=== PATIENT | male | born 1980 | race Caucasian/White ===

== ENCOUNTER 2022-03-05 09:04 | Emergency (ER) | payer OTHER ==
[2022-03-05 09:08] LABS: Glucose,Whole Blood 186 mg/dL (70-110)
[2022-03-05 09:10] VITALS: TEMP 97.7
[2022-03-05] MEDS ORDERED: LABETALOL 5 MG/ML VIAL MDV IVP STA (09:12)
--- NOTE | 2022-03-05 09:16 | ED ---
Neuro HPI - General Chief Complaint: Neuro Symptoms/Deficit Stated Complaint: Stroke Time Seen by Provider: 03/05/22 09:06 Source: patient, EMS Mode of arrival: EMS Limitations: no limitations - History of Present Illness Is the patient presenting with stroke symptoms?: Yes Last Known Well Date: 03/05/22 Last Known Well Time: 08:00 -: minutes(s) Initial Comments: Patient is 41-year-old man presenting with complaint that his speech has changed and he has tingling of his extremities particularly bilateral feet. The patient was in usual state of health until around 8 AM. While he was watching television noticed that his speech was not right. He also started having trouble walking and said that it is feet were tingling. Patient's associate phoned EMS and they brought the patient here. He is denying headache, change in vision or hearing. No symptoms to the upper extremities currently. Location: speech History of same: No Place: home Severity: moderate Improves With: none Worsens With: none On Anticoagulants: No Context: gradual onset Associated Symptoms: other Treatments Prior to Arrival: none - Related Data Allergies/Adverse Reactions: Allergies Allergy/AdvReac Type Severity Reaction Status Date / Time No Known Allergies Allergy Verified 03/05/22 09:16 Review of Systems ROS Statement: Those systems with pertinent positive or pertinent negative responses have been documented in the HPI. ROS Other: All systems not noted in ROS Statement are negative. Constitutional: Denies: fever, chills Eyes: Denies: eye pain, vision change ENT: Denies: hearing loss Respiratory: Denies: cough, dyspnea Cardiovascular: Denies: chest pain, palpitations, orthopnea, edema, syncope Gastrointestinal: Denies: abdominal pain, vomiting, diarrhea Genitourinary: Denies: dysuria, hematuria Musculoskeletal: Denies: back pain Skin: Denies: rash Neurological: Reports: paresthesias (Bilateral feet). Denies: headache, weakness, numbness General Exam Limitations: no limitations General appearance: alert, in no apparent distress Head exam: Present: atraumatic, normocephalic Eye exam: Present: normal appearance, PERRL, EOMI. Absent: scleral icterus, conjunctival injection ENT exam: Present: mucous membranes dry Neck exam: Present: normal inspection, full ROM Respiratory exam: Present: normal lung sounds bilaterally. Absent: respiratory distress, wheezes, rales, rhonchi, stridor Cardiovascular Exam: Present: normal rhythm, tachycardia, normal heart sounds. Absent: systolic murmur, diastolic murmur, rubs, gallop GI/Abdominal exam: Present: soft. Absent: distended, tenderness, guarding, rebound, rigid, mass, hernia Extremities exam: Present: normal inspection, normal capillary refill. Absent: pedal edema, calf tenderness Back exam: Present: normal inspection. Absent: CVA tenderness (R), CVA tenderness (L) Neurological exam: Present: alert Skin exam: Present: warm, dry, intact, normal color. Absent: rash Stroke MDM - Lab Data Result diagrams: 03/05/22 09:12 03/05/22 09:12 Lab Results 03/05/22 03/05/22 03/05/22 Range/Units 09:07 09:12 09:12 WBC 14.3 H (3.8-10.6) k/uL RBC 5.35 (4.30-5.90) m/uL Hgb 17.1 (13.0-17.5) gm/dL Hct 48.9 (39.0-53.0) % MCV 91.5 (80.0-100.0) fL MCH 31.9 (25.0-35.0) pg MCHC 34.9 (31.0-37.0) g/dL RDW 12.8 (11.5-15.5) % Plt Count 342 (150-450) k/uL MPV 8.1 Neutrophils % 53 % Lymphocytes % 34 % Monocytes % 6 % Eosinophils % 3 % Basophils % 1 % Neutrophils # 7.6 (1.3-7.7) k/uL Lymphocytes # 4.9 H (1.0-4.8) k/uL Monocytes # 0.9 (0-1.0) k/uL Eosinophils # 0.4 (0-0.7) k/uL Basophils # 0.1 (0-0.2) k/uL PT 10.2 (9.0-12.0) sec INR 0.9 (<1.2) APTT 20.6 L (22.0-30.0) sec Sodium (137-145) mmol/L Potassium (3.5-5.1) mmol/L Chloride (98-107) mmol/L Carbon Dioxide (22-30) mmol/L Anion Gap mmol/L BUN (9-20) mg/dL Creatinine (0.66-1.25) mg/dL Est GFR (CKD-EPI)AfAm (>60 ml/min/1.73 sqM) Est GFR (CKD-EPI)NonAf (>60 ml/min/1.73 sqM) Glucose (74-99) mg/dL POC Glucose (mg/dL) 186 H (70-110) mg/dL POC Glu Business Management Professor ID Nikia Hu Calcium (8.4-10.2) mg/dL Total Bilirubin (0.2-1.3) mg/dL AST (17-59) U/L ALT (4-49) U/L Alkaline Phosphatase (38-126) U/L Troponin I (0.000-0.034) ng/mL Total Protein (6.3-8.2) g/dL Albumin (3.5-5.0) g/dL 03/05/22 03/05/22 Range/Units 09:12 09:12 WBC (3.8-10.6) k/uL RBC (4.30-5.90) m/uL Hgb (13.0-17.5) gm/dL Hct (39.0-53.0) % MCV (80.0-100.0) fL MCH (25.0-35.0) pg MCHC (31.0-37.0) g/dL RDW (11.5-15.5) % Plt Count (150-450) k/uL MPV Neutrophils % % Lymphocytes % % Monocytes % % Eosinophils % % Basophils % % Neutrophils # (1.3-7.7) k/uL Lymphocytes # (1.0-4.8) k/uL Monocytes # (0-1.0) k/uL Eosinophils # (0-0.7) k/uL Basophils # (0-0.2) k/uL PT (9.0-12.0) sec INR (<1.2) APTT (22.0-30.0) sec Sodium 139 (137-145) mmol/L Potassium 3.5 (3.5-5.1) mmol/L Chloride 100 (98-107) mmol/L Carbon Dioxide 24 (22-30) mmol/L Anion Gap 15 mmol/L BUN 15 (9-20) mg/dL Creatinine 1.31 H (0.66-1.25) mg/dL Est GFR (CKD-EPI)AfAm 78 (>60 ml/min/1.73 sqM) Est GFR (CKD-EPI)NonAf 67 (>60 ml/min/1.73 sqM) Glucose 191 H (74-99) mg/dL POC Glucose (mg/dL) (70-110) mg/dL POC Glu Business Management Professor ID Calcium 8.8 (8.4-10.2) mg/dL Total Bilirubin 1.0 (0.2-1.3) mg/dL AST 29 (17-59) U/L ALT 35 (4-49) U/L Alkaline Phosphatase 137 H (38-126) U/L Troponin I <0.012 (0.000-0.034) ng/mL Total Protein 8.2 (6.3-8.2) g/dL Albumin 4.7 (3.5-5.0) g/dL - Medical Decision Making Patient's 41-year-old man presenting with acute onset dysarthria and bilateral leg symptoms. On arrival found to be markedly hypertensive in addition to the neurologic findings. I patient is sent for CT and CT Angio. I reviewed the computed tomography scan which does show pontine hemorrhage and simultaneously received a call from the radiologist confirming this finding. The patient is given dose of labetalol and Cardene drip was ordered from the pharmacy. When this arrived it was started as well. The case had been discussed twice with Dr. Miles regarding the patient's clinical presentation and then the CT findings. His treatment recommendations are incorporated. Patient will go to [facility] for further stroke team treatment. This was discussed with patient and family and he is agreeable. - EKG Data -: EKG Interpreted by Me EKG shows normal: sinus rhythm, axis (Normal), intervals (Normal), QRS complexes (Normal) Rate: tachycardia (Rate 1:30 bpm) Interpretation: nonspecific ST-T wave changes Past Medical History Past Medical History: No Reported History History of Any Multi-Drug Resistant Organisms: None Reported Past Surgical History: No Surgical Hx Reported Smoking Status: Former smoker Past Alcohol Use History: None Reported Past Drug Use History: None Reported Course Vital Signs 03/05/22 03/05/22 03/05/22 09:06 09:40 09:47 Temperature 97.7 F Pulse Rate 138 H 114 H 120 H Respiratory 18 16 Rate Blood Pressure 216/156 186/140 181/146 O2 Sat by Pulse 98 97 94 L Oximetry 03/05/22 03/05/22 03/05/22 09:54 10:03 10:21 Temperature Pulse Rate 98 92 102 H Respiratory 16 16 18 Rate Blood Pressure 176/133 124/83 151/116 O2 Sat by Pulse 93 L 91 L 92 L Oximetry Critical Care Time Critical Care Time: Yes (40 minutes) Disposition Clinical Impression: Pontine hemorrhage Disposition: OTHER INSTITUTION NOT DEFINED Condition: Critical Is patient prescribed a controlled substance at d/c from ED?: No Referrals: None,Stated [Primary Care Provider] - 1-2 days - Out of Hospital Transfer - Req. Specs Out of Hospital Transfer - Requested Specifics: Neurological ICU
[2022-03-05 09:35] LABS: Basophils # (A) 0.1 k/uL (0-0.2); Basophils % (A) 1 %; Eosinophils # (A) 0.4 k/uL (0-0.7); Eosinophils % (A) 3 %; HCT 48.9 % (39.0-53.0); HGB 17.1 gm/dL (13.0-17.5); Lymphocytes # (A) 4.9 k/uL (1.0-4.8); Lymphocytes % (A) 34 %; MCH 31.9 pg (25.0-35.0); MCHC 34.9 g/dL (31.0-37.0); MCV 91.5 fL (80.0-100.0); Mean Platelet Volume 8.1; Monocytes # (A) 0.9 k/uL (0-1.0); Monocytes % (A) 6 %; Neutrophils # (A) 7.6 k/uL (1.3-7.7); Neutrophils % (A) 53 %; Platelet Count 342 k/uL (150-450); RBC 5.35 m/uL (4.30-5.90); RDW 12.8 % (11.5-15.5); WBC 14.3 k/uL (3.8-10.6)
[2022-03-05] MEDS ORDERED: niCARdipine 20 MG in SODIUM CHLORIDE 0.9% 192 ML IV ONE (09:36)
--- NOTE | 2022-03-05 09:41 | CT ---
EXAMINATION TYPE: CT brain wo con for TPA CT DLP: 1158 mGycm, Automated exposure control for dose reduction was used. DATE OF EXAM: 03/05/2022 9:31 AM COMPARISON: None. CLINICAL INDICATION:Male, 41 years old with history of Neuro deficit, acute, stroke suspected. TECHNIQUE: Brain: Axial CT images of the brain were obtained with coronal and sagittal reformats created and rev iewed. Contrast used: None. Oral contrast used: None. FINDINGS: Brain: Extra-axial spaces: No abnormal extra-axial fluid collections. Ventricular system: Within normal limits Cerebral parenchyma: Hyperintense hemorrhage within the brainstem involving the darian centrally measur ing 17 x 10 x 11 mm. The sinclair-white junction is well differentiated. Cerebellum: Unremarkable. Mass effect: No evidence of midline shift. Intracranial vasculature: unremarkable Soft tissues: Normal. Calvarium/osseous structures: No depressed skull fracture. Paranasal sinuses and mastoid air cells: Mild scattered paranasal sinus disease most pronounced in th e right maxillary sinus. Visualized orbits: Orbital contents are intact. Findings communicated to Dr. John Monge MD on 03/05/2022 9:[address] Jean Galicia. IMPRESSION: 1. Pontine intraparenchymal hemorrhage. 2. No evidence of acute/subacute CVA.
[2022-03-05 09:44] LABS: Albumin 4.7 g/dL (3.5-5.0); Calcium 8.8 mg/dL (8.4-10.2); Potassium 3.5 mmol/L (3.5-5.1); Total Protein 8.2 g/dL (6.3-8.2)
[2022-03-05] MEDS ORDERED: LORazepam 2 MG/ML INJ IV STA (09:57)
--- NOTE | 2022-03-05 10:04 | XR ---
EXAMINATION TYPE: XR chest 2V DATE OF EXAM: 03/05/2022 COMPARISON: NONE HISTORY: Chest pain TECHNIQUE: Frontal and lateral views of the chest are obtained. FINDINGS: There is no focal air space opacity. No evidence for pneumothorax. No pleural effusion. The cardiac silhouette size is within normal limits. The osseous structures are grossly intact. IMPRESSION: 1. No acute cardiopulmonary process.
[2022-03-05 10:17] LABS: INR 0.9 (<1.2); Partial Thromboplastin Time 20.6 sec (22.0-30.0); Prothrombin Time 10.2 sec (9.0-12.0)
[2022-03-05 10:21] VITALS: BP 151/116; PULSE 102; RESP 18
--- NOTE | 2022-03-05 10:26 | CT ---
EXAMINATION TYPE: CT angio head neck CT DLP: 898.7 mGycm, Automated exposure control for dose reduction was used. DATE OF EXAM: 03/05/2022 10:00 AM COMPARISON: Same day CT head. CLINICAL INDICATION:Male, 41 years old with history of Neuro deficit, acute, stroke suspected, AMS, c ode stroke TECHNIQUE: Axially acquired helical CT angiogram of the head and neck was obtained with contrast. Axi al images are supplemented with 3D reconstructions which were [facility] NASCET criteria used. Contrast used:65ml mL of Isovue 370 with IV Contrast, Oral contrast used: None. FINDINGS: CTA HEAD: Redemonstration of intraparenchymal hemorrhage of the darian centrally. No evidence of mass effect, or midline shift. The ventricles, sulci, and cisterns are unremarkable. The visualized portions of the internal carotid arteries, middle cerebral arteries, anterior cerebral arteries, and posterior cerebral arteries are patent. The basilar and vertebral arteries are patent. CTA NECK: Right Carotid System: The common carotid artery and external carotid artery are patent. The carotid bifurcation demonstrate s no evidence of hemodynamically significant stenosis. The remaining portions of the internal carotid artery demonstrate normal size without significant narrowing. There is tortuosity to the internal ca rotid artery near the skull base. Left Carotid System: The common carotid artery and external carotid artery are patent. The carotid bifurcation demonstrate s no evidence of hemodynamically significant stenosis. The remaining portions of the internal carotid artery demonstrate normal size without significant narrowing. Vertebral arteries are patent with focal narrowing at the origin of the left vertebral artery. Best a ppreciated on series 402 image 109-115. Greater than stenosis is slightly limited given technique and background noise. There is a three-vessel aortic arch. The origins of the great vessels are patent. Mild mucosal thicke javan of the right maxillary sinus. The heart is mildly enlarged for size and partially visualized. IMPRESSION: 1. No evidence of dissection of the cervical internal carotid arteries or vertebral arteries or any e vidence of significant stenosis at the carotid bifurcations. 2. Left vertebral artery origin stenosis. The degree of stenosis are limited by technique and motion with background noise. 3. No evidence of intracranial high-grade stenosis or intracranial aneurysm. 4. Pontine intraparenchymal hemorrhage as seen on same day CT head.
== END 2022-03-05 10:55 | disposition other institution (70) ==
LOC: EC 09:04
DX: I61.3 Nontraumatic intracerebral hemorrhage in brain stem (principal); Z87.891 Personal history of nicotine dependence
CPT/HCPCS: 99291 ×2; 96365 ×2; 96375 ×2; 36415; 93005; 80053; 84484; 85025; 85610; 85730; 71046; 70496; 70450; 70498; Q9967

== ENCOUNTER → 2022-03-24 | Outpatient (CLI) | payer OTHER ==
--- NOTE | 2022-03-24 12:28 | P.SLEEP ---
History of Present Illness DATE: 03/24/2022 CONSULTATION/NEW PATIENT EVALUATION HISTORY OF PRESENT ILLNESS/SLEEP-WAKE EVALUATION: 42-year-old gentleman had been evaluated in the sleep center for possible obstructive sleep apnea hypopnea syndrome. SLEEP SCHEDULE: Usually sleep schedule from 10 PM to 7 AM on weekdays and from 11 PM to 8 AM on weekend. FALLING ASLEEP: Patient has problems with falling asleep, highest TV set in bedroom. DURING SLEEP: Patient has loud snoring, witnessed episodes of stop breathing during the sleep and multiple awakenings from sleep up to 3 times with nocturia No history of hypnogogical hallucinations, sleep paralysis, or cataplexy. DURING THE DAY/WAKE STATE: In the morning patient wake up tired. [place] sleepiness scale is 6. Patient takes 1 nap in the afternoon. PAST MEDICAL HISTORY: Hemorrhagic stroke in March 05 2022 secondary to extremely high level of blood pressure. PAST SURGICAL HISTORY: None. MEDICATIONS: Amlodipine, carvedilol. SOCIAL HISTORY: Positive history of smoking in the past for about 15 pack years, quit 14 years ago, alcohol consumption occasional. FAMILY HISTORY: Hypertension, snoring. REVIEW OF SYSTEMS: Loud snoring, witnessed sleep apneas. No fevers. No double vision. No recent chest pain. No shortness of breath. No abdominal pain. No bleeding episodes. No blood in urine. No seizure episodes. PHYSICAL EXAMINATION: GENERAL: A pleasant patient without any distress. VITAL SIGNS: BP 118/84, HR 84, RR 18, weight 241.0 pounds, height 5 foot 7-1/2 inches, body mass index 37.0. HEENT: PERRLA, EOMI. Evaluation of oropharynx showed tongue protrudes midline, low position of soft palate Mallampati 34. NECK: Supple. No JVD. Thyroid is not palpable. 19-3/4 inches in circumference. LUNGS: Clear to percussion and to auscultation. Good air exchange. No wheezing or rhonchi. HEART: S1, S2 regular. No murmurs, gallops or rubs. ABDOMEN: Soft and nontender. Bowel sounds are present. No organomegaly appreciated. EXTREMITIES: No clubbing or cyanosis. ARCHITECTURAL DRAFTSPERSON: Awake, alert, and oriented x3. Cranial nerves 2 to 7 intact. There is no fasciculation or atrophy noted. No focal deficits observed. ASSESSMENT: 1. Loud snoring, witnessed episodes of sleep apneas, extremely low position of soft palate, extremely wide neck 19 and three-quarter inches in circumference. Obstructive sleep apnea-hypopnea syndrome. 2. Status post hemorrhagic stroke in 03/05/2022 with residual left foot and left arm tingling sensation. 3. Hypertension. 4. Obesity body mass index 37.0. PLAN: 1. Polysomnography for evaluation of patient's breathing during sleep. 2. CPAP/BiPAP titration if sleep study confirms obstructive sleep apnea- hypopnea syndrome. 3. Preferable position during sleep on the side. 4. No driving if patient feels any sleepiness. Patient is aware of civil and criminal liability for unsafe driving. 5. Sleep hygiene with regular sleep time for at least 7.5-8 hours. 6. Watching and losing weight. Thank you very much for referring this patient for consultation. Sincerely, Bill Camejo MD, PhD, FAASM. Diplomat of [place] [employer], Sleep Medicine Board by [place] [employer] [place] [employer] Cyber Software Engineer of [facility] [place] Past Medical History Past Medical History: No Reported History History of Any Multi-Drug Resistant Organisms: None Reported Past Surgical History: No Surgical Hx Reported Smoking Status: Former smoker Past Alcohol Use History: None Reported Past Drug Use History: None Reported Medications and Allergies Allergies Allergy/AdvReac Type Severity Reaction Status Date / Time No Known Allergies Allergy Verified 03/05/22 09:16 Sleep Note - Sleep Note Sleep Note: Temperature: Pulse Rate: Respiratory Rate: Blood Pressure: SpO2: Height: Weight: BMI: Neck Circumference:
== END ==
LOC: SLEEP 10:37
PROVIDERS: ATTEND Internal Medicine
DX: G47.33 Obstructive sleep apnea (adult) (pediatric) (principal); I10 Essential (primary) hypertension; E66.9 Obesity, unspecified; Z68.37 Body mass index [BMI] 37.0-37.9, adult; Z86.73 Personal history of transient ischemic attack (TIA), and cerebral infarction without residual deficits
CPT/HCPCS: 99211

== ENCOUNTER → 2022-09-16 | Outpatient (CLI) | payer OTHER ==
--- NOTE | 2022-09-16 11:32 | P.PN ---
Subjective DATE: 09/16/2022 FOLLOW UP VISIT. Patient with obstructive sleep apnea hypopnea syndrome return to sleep center for follow-up visit. Information from previous visit have been reviewed. Patient is using PAP equipment every night for the whole night, getting PAP supplies in time. The patient does not have significant problems with the mask, PAP unit and humidification. [place] sleepiness scale is 4, which is normal. I checked information from PAP unit. BPAP unit pressure maximal inspiratory pressure 17, minimal expiratory pressure 8, average pressure 13.5 over 9.5 cm H2O. Usage is about 90% and 70 % for more then 4 hours, average 4.7 hours per night. Leak is high 84 l/m. Apnea Hypopnea Index is 2.6, which is normal. MEDICATIONS:1. Amlodipine 2. Carvedilol 3. Medications for blood pressure patient does not remember the names During physical exam: GENERAL: A pleasant patient without any distress. VITAL SIGNS: BP 113/75, HR 79, RR 16 , weight 244, temperature 97.8, oxygen saturation at room air 96 % . HEENT: PERRLA, EOMI.low position of soft palate, Mallapati 34 . NECK: Supple. No JVD. LUNGS: Clear to percussion and to auscultation. Good air exchange. No wheezing or rhonchi. HEART: S1, S2 regular. ABDOMEN: Soft and nontender. Slightly obese EXTREMITIES: No clubbing or cyanosis. CLASSER: Awake, alert, and oriented x3. No focal deficit. Impressions: 1. Obstructive sleep apnea-hypopnea syndrome. Patient demonstrated good compliance with treatment, benefiting from treatment. 2. Obesity. 3. Hypertension. 4. Status post hemorrhagic stroke in February 2022. Plan: 1. Continue using PAP equipment every night for the whole night. 2. To change air filter at least 1-2 times per month. 3. PAP unit should stay lower then position of the head. 4. Advised patient to remove all remaining water from humidifier canister daily and make it dry after each usage. Refill canister with fresh distilled water before each usage. 5. Sleep hygiene with regular time in bed for at least 8 hours. 6. Precautions related to driving. No driving if feel any sleepiness. 7. I will maintain prescription for PAP supplies including mask, tube, filters. 8.Watching and losing weight. 9. Follow up visit in 6 months or earlier if patient has any problems. Thank you very much for allowing me to participate in the management of your patient. Bill Camejo MD, PhD, FAASM. Diplomat of [place] [employer] Medicine, Sleep Medicine Board by [place] [employer] Hay Baler of [facility] [place]
== END | disposition home or self-care (01) ==
LOC: SLEEP 11:09
PROVIDERS: ATTEND Internal Medicine
DX: G47.33 Obstructive sleep apnea (adult) (pediatric) (principal); I10 Essential (primary) hypertension; E66.9 Obesity, unspecified; Z86.73 Personal history of transient ischemic attack (TIA), and cerebral infarction without residual deficits; Z99.89 Dependence on other enabling machines and devices
CPT/HCPCS: 99212

== ENCOUNTER → 2024-02-01 | Outpatient (CLI) | payer OTHER ==
[2024-02-01 16:22] VITALS: BP 103/67; PULSE 87; RESP 16; TEMP 97.9
--- NOTE | 2024-02-01 17:03 | P.PROGSL ---
Subjective DATE: 02/01/2024 FOLLOW UP VISIT. Patient with obstructive sleep apnea hypopnea syndrome return to sleep center for follow-up visit. Information from previous visit have been reviewed. Patient is using PAP equipment every night for the whole night, getting PAP supplies in time. The patient does not have significant problems with the mask, PAP unit and humidification. [place] sleepiness scale is 2, which is perfect. I checked information from BPAP unit. BPAP unit pressure maximal inspiratory pressure 17, minimal expiratory pressure 8, pressure support 4, average pressure 13.3/9.3 cm H2O. Usage is 100% for more then 4 hours, average 8.6 hours per night. Leak is significantly increased to 52 l/m. Apnea Hypopnea Index is great 0.6. MEDICATIONS have been reviewed, please see below. During physical exam: GENERAL: A pleasant patient without any distress. VITAL SIGNS: Please see below, weight is 247.2 lbs, oxygen saturation on room air 96%. HEENT: PERRLA, EOMI.low position of soft palate, Mallapati 34. NECK: Supple. No JVD. LUNGS: Clear to percussion and to auscultation. Good air exchange. No wheezing or rhonchi. HEART: S1, S2 regular. ABDOMEN: Soft and nontender. Slightly obese EXTREMITIES: No clubbing or cyanosis. BRIDGE OPERATOR: Awake, alert, and oriented x3. No focal deficit. Impressions: 1. Obstructive sleep apnea-hypopnea syndrome. Patient demonstrated great compliance with treatment, benefiting from treatment. 2. Obesity, BMI 38.6, patient increased weight on 3 pounds comparing with the previous visit. 3. Hypertension. 4. Status post hemorrhagic stroke in February 2022. Plan: 1. Continue using PAP equipment every night for the whole night. Patient should replace his mask as soon as possible. 2. Sleep hygiene with regular time in bed for at least 7.5-8 hours 3. PAP unit should stay lower then position of the head. 4. Advised patient to remove all remaining water from humidifier canister daily and make it dry after each usage. Refill canister with fresh distilled water before each usage. 5. Watching and losing weight. 6. Precautions related to driving. No driving if feel any sleepiness. 7. I will maintain prescription for PAP supplies including mask, tube, filters. 8. Follow up visit in 6 months or earlier if patient has any problems. Thank you very much for allowing me to participate in the management of your patient. Bill Camejo MD, PhD, FAASM. Diplomat of [place] [employer] Medicine, Sleep Medicine Board by [place] [employer] Physics Professor of [facility] [place] Objective - Vital Signs Vital Signs: Vital Signs Temp 97.9 F 02/01/24 16:21 Pulse 87 02/01/24 16:21 Resp 16 02/01/24 16:21 BP 103/67 02/01/24 16:21 Pulse Ox 94 L 02/01/24 16:21 FiO2 Intake & Output 01/31/24 02/01/24 02/01/24 18:59 06:59 18:59 Weight 112.094 kg
== END ==
LOC: 3 N SLEEP 16:02
PROVIDERS: ATTEND Internal Medicine
CPT/HCPCS: 99212

== ENCOUNTER → 2024-11-02 | Outpatient (CLI) | payer OTHER ==
--- NOTE | 2024-11-04 19:56 | MR ---
EXAMINATION TYPE: MR lumbar spine wo con DATE OF EXAM: 11/02/2024 8:13 AM COMPARISON: None. CLINICAL INDICATION: Male, 44 years old with history of M54.50 LUMBAR PAIN, Chronic lower back pain. TECHNIQUE: Multiplanar, multisequence images of the lumbar spine were acquired. IV Contrast: mL (None, if empty) FINDINGS: Cord ends at the L1-L2 level. L5-S1: No focal disc herniation or significant disc bulge. No spinal canal stenosis. Neural foramen are patent. L4-L5: No focal disc herniation or significant disc bulge. No spinal canal stenosis. Neural foramen are patent. L3-L4: No focal disc herniation or significant disc bulge. No spinal canal stenosis. Neural foramen are patent. L2-L3: No focal disc herniation or significant disc bulge. No spinal canal stenosis. Neural foramen are patent. L1-L2: No focal disc herniation or significant disc bulge. No spinal canal stenosis. Neural foramen are patent. T12-L1: No focal disc herniation or significant disc bulge. No spinal canal stenosis. Neural forame n are patent. Disc hydration levels are normal. Disc heights are preserved. There appears to be a hemangioma within the S3 vertebral level. IMPRESSION: 1. No acute lumbar MRI abnormality. [facility], , 11/04/2024 7:54 PM
== END | disposition home or self-care (01) ==
LOC: RADMRIMAIN 07:29
PROVIDERS: ATTEND Family Medicine
DX: M54.50 Low back pain, unspecified (principal); Z53.9 Procedure and treatment not carried out, unspecified reason
CPT/HCPCS: 72148